=== PATIENT | female | born 1950 | race Caucasian/White ===

== ENCOUNTER 2021-06-08 00:28 | Day surgery (SDC) | payer MEDICARE, SELFPAY ==
[2021-05-30 13:57] VITALS: BMI 36.5
[2021-06-08 08:32] VITALS: BP 126/73; PULSE 116; RESP 20; TEMP 36.7; O2SAT 97; BMI 36.3
[2021-06-08] MEDS: LACTATED RINGERS 1,000 ML 150 ML IV CONT (08:34)
--- NOTE | 2021-06-08 08:42 | WPDANESEPPF ---
Anes - Initial Pre Proc Eval Procedure: Operation Date: 06/08/21 09:30 Proposed Procedures p Esophagogastroduodenoscopy & Colonoscopy - Del Flannery MD Date/Time: 06/08/21 08:42 Surgeon: Del Flannery MD Pre Op Diagnosis: MAYITO Patient Data Age: 71 Gender: F Height: 1.6 m Weight: 92.9 kg Last Vital Signs Temp 36.7 C 06/08/21 08:32 Pulse 116 H 06/08/21 08:32 Resp 20 06/08/21 08:32 BP 126/73 06/08/21 08:32 Pulse Ox 97 06/08/21 08:32 Allergies Allergy/AdvReac Type Severity Reaction Status Date / Time No Known Allergies Allergy Verified 06/08/21 08:29 Home Medications Medication Instructions Recorded Confirmed Type rivaroxaban 20 mg tablet 20 mg PO DAILY 10/26/19 05/30/21 History albuterol sulfate 90 mcg/actuation 2 inhalation INHALATION Q4H PRN 05/12/20 05/30/21 Rx aerosol inhaler #18 gm diltiazem HCl 120 mg capsule,24 120 mg PO DAILY 05/15/21 05/30/21 History hr,extended release ferrous sulfate 325 mg (65 mg 325 mg PO DAILY 05/15/21 05/30/21 History iron) tablet furosemide 20 mg PO 05/30/21 History lisinopril 5 mg PO DAILY 05/30/21 05/30/21 History escitalopram oxalate 20 mg tablet 20 mg PO . q.h.s. #30 tablet 06/04/21 06/08/21 Rx Patient hx anesthesia problems: none Family hx anesthesia problems: none Results Review: All pre-operative results and documents have been reviewed as part of the pre-operative evaluation. [facility] Past Medical History Medical History Acute non-recurrent maxillary sinusitis Chronic anxiety Chronic atrial fibrillation Chronic depression Chronic left shoulder pain Diastolic dysfunction Hypersomnia Iron deficiency anemia, unspecified (05/11/21) iron 17 with hemoglobin 9.9 and hematocrit 30.6 Mild intermittent asthma in adult without complication Mitral valve regurgitation Obesity (BMI 35.0-39.9 without comorbidity) Tricuspid valve regurgitation, nonrheumatic Family History Family History Father Patient's father is , Onset Age: 84 Grandparent Family history of cardiovascular disease, Onset Age: 72 Sibling Family history of cardiovascular disease, Onset Age: 53 Mother Family history of malignant neoplasm, Onset Age: 64 Social History Social History Smoking status: Never smoker Alcohol intake: current Drinks per week: 1 Alcohol use details: WINE Substance use: never Substance use type: does not use Living arrangements: with family Spiritual care concerns: No Anes - Eval Final PreProcedure Day of Procedure 06/08/21 08:42 Patient weight: obese Heart: irregular rhythm Lungs: clear to auscultation Airway: Mallampati scale class II Neurological: alert and oriented Last oral intake: >/= 8 hours ASA classification: III Emergent: no Anesthetic plan: proceed Anesthesia type and monitoring: general GIVS and standard monitoring Results Review: All pre-operative results and documents have been reviewed as part of the pre-operative evaluation. Informed Consent: The patient's anesthetic plan and its attendant risks and benefits were discussed with the patient/family/POA. Questions were solicited and answers provided to the satisfaction of the patient/family/POA.
--- NOTE | 2021-06-08 09:22 | PM.HPGS ---
History of Present Illness History of Present Illness Consent: Risks, benefits, and alternatives have been discussed and questions answered. Patient agrees to proceed with procedure. Chief complaint: MAYITO Narrative: Cady Barcenas is a 71 year old female Found to be anemic. Her hemoglobin is 9.6 an iron is down to 14. She has not seen blood in her stools. Review of Systems Review of Systems: All systems reviewed & are unremarkable except as noted in HPI and below PMFSH Past Medical History Medical History Acute non-recurrent maxillary sinusitis Chronic anxiety Chronic atrial fibrillation Chronic depression Chronic left shoulder pain Diastolic dysfunction Hypersomnia Iron deficiency anemia, unspecified (05/11/21) iron 17 with hemoglobin 9.9 and hematocrit 30.6 Mild intermittent asthma in adult without complication Mitral valve regurgitation Obesity (BMI 35.0-39.9 without comorbidity) Tricuspid valve regurgitation, nonrheumatic Family History Family History Father Patient's father is , Onset Age: 84 Grandparent Family history of cardiovascular disease, Onset Age: 72 Sibling Family history of cardiovascular disease, Onset Age: 53 Mother Family history of malignant neoplasm, Onset Age: 64 Social History Social History Smoking status: Never smoker Alcohol intake: current Drinks per week: 1 Alcohol use details: WINE Substance use: never Substance use type: does not use Living arrangements: with family Spiritual care concerns: No Meds Home Medications and Allergies Home Medications Medication Instructions Recorded Confirmed Type rivaroxaban 20 mg tablet 20 mg PO DAILY 10/26/19 05/30/21 History albuterol sulfate 90 mcg/actuation 2 inhalation INHALATION Q4H PRN 05/12/20 05/30/21 Rx aerosol inhaler #18 gm diltiazem HCl 120 mg capsule,24 120 mg PO DAILY 05/15/21 05/30/21 History hr,extended release ferrous sulfate 325 mg (65 mg 325 mg PO DAILY 05/15/21 05/30/21 History iron) tablet furosemide 20 mg PO 05/30/21 History lisinopril 5 mg PO DAILY 05/30/21 05/30/21 History escitalopram oxalate 20 mg tablet 20 mg PO . q.h.s. #30 tablet 06/04/21 06/08/21 Rx Allergies Allergy/AdvReac Type Severity Reaction Status Date / Time No Known Allergies Allergy Verified 06/08/21 08:29 Vital Signs Vital Signs - 24 hr 06/08/21 08:32 Temperature 36.7 C Pulse Rate 116 H Respiratory Rate 20 Blood Pressure 126/73 Pulse Oximetry 97 Exam Const: General: alert Orientation/consciousness: patient oriented x3 Resp: Auscultation: clear to auscultation bilaterally Cardio: Rhythm: regular rhythm GI: GI Palp: Yes Soft to palpation and No Tenderness to palpation present (GI) Neuro: General: patient oriented x3 Assessment and Plan Assessment and plan (1) Iron deficiency anemia, unspecified: Onset Date: 05/11/21 Code(s): D50.9 - Iron deficiency anemia, unspecified Status: Acute Assessment and Plan: EGD with possible biopsy or dilatation or cautery.Colonoscopy with possible biopsy or polypectomy or cautery or injection of substances.
--- NOTE | 2021-06-08 09:51 | SUR.OPER ---
EGD START 924, END 929 COLONOSCOPY START 936, END 950
[2021-06-08 09:53] VITALS: BP 114/55; PULSE 62; RESP 21; O2SAT 99
[2021-06-08 10:03] VITALS: BP 115/68; PULSE 69; RESP 30; O2SAT 100
[2021-06-08 10:13] VITALS: BP 145/69; PULSE 67; RESP 22; O2SAT 98
== END 2021-06-08 10:26 | disposition home or self-care (01) ==
PROVIDERS: PCP Family Medicine; Visit Provider Internal Medicine Gastroenterology
PROC: 0DJ08ZZ Inspection of Upper Intestinal Tract, Via Natural or Artificial Opening Endoscopic (ICD-10-PCS; CPT 43235; principal; 2021-06-08 09:30)
DX: D50.9 Iron deficiency anemia, unspecified (principal); K21.00 Gastro-esophageal reflux disease with esophagitis, without bleeding; K31.89 Other diseases of stomach and duodenum; K57.30 Diverticulosis of large intestine without perforation or abscess without bleeding; F41.8 Other specified anxiety disorders; I48.20 Chronic atrial fibrillation, unspecified; J45.20 Mild intermittent asthma, uncomplicated; I34.0 Nonrheumatic mitral (valve) insufficiency; I36.1 Nonrheumatic tricuspid (valve) insufficiency; Z79.01 Long term (current) use of anticoagulants; Z79.51 Long term (current) use of inhaled steroids; E66.9 Obesity, unspecified; Z68.36 Body mass index [BMI] 36.0-36.9, adult
CPT/HCPCS: 43239; 45378; 87081; 88305; J2001; J2704; J7120